=== PATIENT | male | born 1990 | race Caucasian/White ===

== ENCOUNTER 2016-12-16 09:54 | Emergency (ER) | payer BC ==
[2016-12-16 10:43] VITALS: BP 135/77
--- NOTE | 2016-12-16 10:50 | UC ---
HPI Febrile Illness - HPI Summary HPI Summary: complaint of intermittent fever and feeling achy in his muscles that started cough and nasal congestion started the next day fatigued mild sore throat intermittent headache and neck pain which is relieved y ibuprofen taking ibuprofen with some relief denies ear pain, shortness of breath denies N/V/D - History of Current Complaint Chief Complaint: UCGeneralIllness Time Seen by Provider: 12/16/16 10:42 Hx Obtained From: Patient - Allergy/Home Medications Allergies/Adverse Reactions: Allergies Allergy/AdvReac Type Severity Reaction Status Date / Time No Known Allergies Allergy Verified 12/16/16 10:25 PMH/Surg Hx/FS Hx/Imm Hx Previously Healthy: Yes - Surgical History Surgery Procedure, Year, and Place: 2014. [place] teeth 2008 Infectious Disease History: No Infectious Disease History: Denies: Traveled Outside the [place] in Last 30 Days - Family History Known Family History: Negative: Cardiac Disease, Hypertension, Diabetes - Social History Occupation: Employed Full-time Lives: With Family Alcohol Use: None Substance Use Type: Reports: None Smoking Status (MU): Never Smoked Tobacco Review of Systems Constitutional: Fever, Fatigue Skin: Negative Eyes: Negative ENT: Nasal Discharge, Sinus Congestion Respiratory: Cough Cardiovascular: Negative Gastrointestinal: Negative Genitourinary: Negative Motor: Negative Neurovascular: Negative Musculoskeletal: Negative Neurological: Headache Psychological: Negative All Other Systems Reviewed And Are Negative: Yes Physical Exam Triage Information Reviewed: Yes Appearance: No Pain Distress, Well-Nourished Vital Signs: Initial Vital Signs Temp 99.1 F 12/16/16 10:25 Pulse 87 12/16/16 10:25 Resp 16 12/16/16 10:25 BP 135/77 12/16/16 10:25 Pulse Ox 99 12/16/16 10:25 Vital Signs Reviewed: Yes Eyes: Positive: Conjunctiva Clear ENT: Positive: Pharyngeal erythema, Nasal congestion, Nasal drainage, TMs normal. Negative: Tonsillar swelling, Tonsillar exudate Neck: Positive: Supple, No Lymphadenopathy. Negative: Nuchal Rigidity Respiratory: Positive: Lungs clear, Normal breath sounds, No respiratory distress, No accessory muscle use Cardiovascular: Positive: RRR, No Murmur, Pulses Normal Abdomen Description: Positive: Nontender, No Organomegaly, Soft Bowel Sounds: Positive: Present Musculoskeletal: Positive: No Edema Neurological: Positive: Alert Psychological Exam: Normal Skin Exam: Normal Course/Dx - Febrile Illness Differential Diagnoses: Other: - URI, viral illness, pharyngitis - Diagnoses Clinic Provider Diagnoses: viral illness-URI Discharge - Discharge Plan Condition: Stable Disposition: HOME Prescriptions: Guaifenesin-Codeine [Cheratussin AC] 10 syp PO Q6HR #120 ml MDD 40 ml Patient Education Materials: Upper Respiratory Infection (ED), Fever in Adults (ED) Forms: *Work Release Referrals: Moi Casey MD [Medical Doctor] - Additional Instructions: Increase fluids and rest Take acetaminophen or ibuprofen for fever or pain Please review your discharge instructions. If your symptoms do not improve please call your primary care provider or return to urgent care. Your blood pressure is pre-hypertensive reading. Please contact your primary care provider within 1 day -4 weeks for further evaluation
== END 2016-12-16 11:12 | disposition home or self-care (01) ==
LOC: UCCORT 09:54
DX: B34.9 Viral infection, unspecified (principal); J06.9 Acute upper respiratory infection, unspecified
CPT/HCPCS: 99202; G0463